=== PATIENT | female | born 1995 | race Caucasian/White ===

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

== ENCOUNTER → 2018-08-12 | Outpatient (CLI) | payer OTHER ==
[~2018-08-12] MED LIST changes: -LIDOCAINE 1% MDV 20ML VIAL As Ordered ONE; +PROHANCE 279.3MG/ML 5ML VIAL (A9576) As Ordered ONE; -TRIAMCINOLONE ACETONIDE SUSP 40 MG/ML VIAL (J3301) As Ordered ONE
--- NOTE | 2018-08-12 09:49 | REP ---
MR ARTHROGRAM LEFT SHOULDER: TECHNIQUE: Axial T2 fat sat, coronal oblique T1, T2 fat sat, post arthrogram axial T1 fat sat, proton density, coronal oblique T1 fat sat, T2 sat, sagittal oblique T2 fat sat, ABER T1 fat sat. There is no evidence of rotator cuff tear. Acromioclavicular joint demonstrates no significant hypertrophic changes. There is a type 1 acromion. Biceps tendon is within the bicipital groove. There is no tenosynovitis. There is no Hill-Sach's deformity. The deltoid muscle demonstrates no abnormal signal. Biceps labral complex is intact. There is no evidence of a labral tear. There is no bone marrow edema or occult fracture. There is normal amount of joint fluid. No paralabral cyst is seen. IMPRESSION: No evidence of rotator cuff tear or labral tear. Negative MR arthrography left shoulder. Electronically Signed by Severiano Almanza MD 08/12/2018 03:37 P
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
== END ==
LOC: M RADPRO 06:49
PROVIDERS: ATTEND Physician Assistant
DX: M25.512 Pain in left shoulder (principal)
CPT/HCPCS: 23350; 73223; 77002; A9576; Q9960